=== PATIENT | male | born 1955 | race Caucasian/White ===

== ENCOUNTER 2019-03-16 16:53 | Inpatient (IN) | payer MEDICARE, BC ==
[~2019-03-16] VITALS: Ht 170.2 cm; Wt 66.7 kg
--- NOTE | 2019-03-16 17:05 | NUR ---
UZMA ENRIQUEZ AT BEDSIDE FOR MSE.
--- NOTE | 2019-03-16 17:13 | NUR ---
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 NO DETAILS OF THE PICK-UP LOCATION, PT'S MEDICAL HISTORY, PT'S MEDICAL STATUS, REPORT WERE RECEIVED FROM THE FACILITY NOR THE TRANSPORTATION COMPANY. VSS. PT PRESENTS W/ GENERALIZED WEAKNESS, WARM TO THE TOUCH, LOW-GRADE FEVER OF 99.5 DEGREES F. UNKNOWN MEDICATION ALLERGIES. CALL TO THE PT'S ORIGINATING FACILITY WAS PLACED, FACILITY REP UNABLE TO PROVIDE PT'S ALLERGIES.
[2019-03-16] MEDS ORDERED: PIPERACILLIN SODIUM/TAZOBACTAM 3.375 G in IV DEXTROSE 5% 50 ML IV ONE (17:15)
[2019-03-16] MEDS ORDERED: VANCOMYCIN IV 1,000 MG in IV DEXTROSE 5% 250 ML IV ONE (17:15)
[2019-03-16] MEDS ORDERED: IV NORMAL SALINE 1000 ML BAG IV ONE ×2 (17:15→18:30)
[2019-03-16] MEDS ORDERED: TAMS-3 PO (17:29)
[2019-03-16] MEDS ORDERED: SERT50TA PO (17:29)
[2019-03-16] MEDS ORDERED: RISP1TAB27 PO (17:29)
[2019-03-16] MEDS ORDERED: POTA10TA15 PO (17:29)
[2019-03-16] MEDS ORDERED: LOPE2CAP PO (17:29)
[2019-03-16] MEDS ORDERED: QUET50TA PO (17:29)
[2019-03-16] MEDS ORDERED: FURO20TA4 PO (17:29)
[2019-03-16] MEDS ORDERED: DONE10TA44 PO (17:29)
[2019-03-16] MEDS ORDERED: ONDA4TAB11 PO (17:29)
[2019-03-16] MEDS ORDERED: DOCU100C36 PO (17:29)
[2019-03-16] MEDS ORDERED: METO25TA6 PO (17:29)
[2019-03-16] MEDS ORDERED: TEMA30CA PO (17:29)
[2019-03-16] MEDS ORDERED: LORA1TAB PO (17:29)
[2019-03-16] MEDS ORDERED: TOBR5DRO46 EACHEYE (17:29)
[2019-03-16] MEDS ORDERED: SIME125T62 PO (17:29)
[2019-03-16] MEDS ORDERED: PIPERACILLIN/TAZOBACTAM/D5W 50 ML IV ONE (17:48)
[2019-03-16 17:52] LABS: *BILIRUBIN,URIN NEGATIVE (NEGATIVE); *CLARITY,URINE CLEAR (CLEAR); *COLOR,URINE YELLOW (YELLOW); *KETONES,URINE NEGATIVE (NEGATIVE); *UROBILINOGEN,URINE 0.2 E.U./dl (NORMAL); LEUKOCYTE ESTERASE ,URINE NEGATIVE (NEGATIVE); NITRITE, URINE NEGATIVE (NEGATIVE); UGLUCOSE NEGATIVE (NEGATIVE)
[2019-03-16 17:56] LABS: *BLOOD, URINE TRACE (NEGATIVE)
[2019-03-16 17:57] LABS: MUCUS,URINE FEW /LPF (0-FEW); SQUAMOUS EPITHELIAL CELL,UR FEW /HPF (NONE SEEN); WBC,URINE 0-3 /HPF (0-3)
[2019-03-16 18:04] LABS: BASOPHILS # (AUTO) 0.1 K/uL (0.0-8.0); BASOPHILS % (AUTO) 0.8 % (0.0-2.0); EOSINOPHILS # (AUTO) 0.2 K/uL (0.0-0.7); EOSINOPHILS % (AUTO) 1.9 % (0.0-7.0); HEMOGLOBIN 10.9 g/dL (12.5-16.3); LYMPHOCYTES # (AUTO) 1.2 K/uL (20.0-40.0); LYMPHOCYTES % (AUTO) 13.8 % (20.5-51.5); MEAN CORPUSCULAR HEMOGLOBIN 33.7 uug (23.8-33.4); MEAN CORPUSCULAR HGB CONC 32 g/dL (32.5-36.3); MEAN CORPUSCULAR VOLUME 105.6 fL (73.0-96.2); MONOCYTES # (AUTO) 0.9 K/uL (2.0-10.0); MONOCYTES % (AUTO) 10.1 % (0.0-11.0); NEUTROPHILS # (AUTO) 6.6 K/uL (1.8-8.9); NEUTROPHILS % (AUTO) 73.4 % (38.5-71.5); PLATELET COUNT (AUTO) 87 K/uL (152-348); RED BLOOD CELL COUNT(AUTO) 3.22 MIL/uL (4.06-5.63)
[2019-03-16 18:08] LABS: CREATININE 1.1 mg/dL (0.6-1.3); POTASSIUM 4.1 mmol/L (3.5-5.1)
[2019-03-16] MEDS ORDERED: VANCOMYCIN IV 200 ML ONE (18:19)
[2019-03-16 18:21] LABS: BILIRUBIN,DIRECT 0.1 mg/dL (0.0-0.2); BILIRUBIN,TOTAL 0.3 mg/dL (0.2-1.0); TOTAL PROTEIN, SERUM 6.7 g/dL (6.4-8.2)
[2019-03-16 18:26] LABS: BAND % (MANUAL) 14 % (0-10); EOSINOPHILS % (MANUAL) 1 % (0-8); LYMPHOCYTES % (MANUAL) 15 % (20-40); MONOCYTES % (MANUAL) 12 % (2-10); NEUTROPHILS % (MANUAL) 58 % (42-75)
--- NOTE | 2019-03-16 18:42 | NUR ---
ADMITTING REPORT GIVEN TO JCAQUELINE LITTLE.
--- NOTE | 2019-03-16 18:55 | NUR ---
Pt. admitted to TELE 307, under care of ANDRE ROCHE. Belongs List completed
--- NOTE | 2019-03-16 19:19 | NUR ---
Received call from Patient's nephew Jhonny, states patient just finished taking last dose of bactrim, and that patient had an eye infection from touching his eyes after touching his feces.
[2019-03-16] MEDS ORDERED: IV NS 1000 ML 1,000 ML IV ONE (19:45)
[2019-03-16] MEDS ORDERED: ONDANSETRON 4 MG/2 ML VIAL IV PRN (19:45)
[2019-03-16] MEDS ORDERED: PIPERACILLIN SODIUM/TAZOBACTAM 3.375 G in IV DEXTROSE 5% 50 ML IV SCH (19:45)
[2019-03-16] MEDS ORDERED: SIMETHICONE 125 MG PO SCH (20:00)
--- NOTE | 2019-03-16 20:30 | NUR ---
RECEIVED PATIENT VIA GURNEY FROM ER. IT WAS REPORTED THAT PATIENT IS ALERT TO SELF ONLY. UPON ADMISSION TO FLOOR, PATIENT IS A/O X 2-3. PATIENT IS ABLE TO ANSWER QUESTIONS AND VERBALIZES UNDERSTANDING. C/O MILD PAIN IN BACK. VSS UPON ADMISSION. ON O2 2L NC. FLUID CHALLENGE FROM ER COMPLETE. H/L INTACT AND PATENT, NOTED TO RIGHT UPPER ARM. ORIENTED PATIENT TO ROOM AND CALL LIGHT. BED ALARM ON. ALL NEEDS ATTENDED. WILL CONTINUE TO MONITOR AND ASSESS.
[2019-03-16 20:56] VITALS: BP 98/54
[2019-03-16] MEDS ORDERED: TEMAZEPAM 30 MG CAPSULE PO SCH (21:00)
--- NOTE | 2019-03-16 21:00 | NUR ---
PATIENT ON TELE AV PACING.
[2019-03-16] MEDS: ACETAMINOPHEN 325 MG TABLET PO PRN (21:13)
[2019-03-16] MEDS: FAMOTIDINE. 20 MG/2 ML VIAL IV SCH (21:18)
--- NOTE | 2019-03-16 21:21 | NUR ---
PHARMACY CLINICAL NOTES : VANCOMYCIN DOSING S: 63 YO male with DX of sepsis of unknown source also on Zosyn O: BUN/SCR 23/1.1, WBC 9.0, TEMP 99.5, DOSING WT 170 LBS A/P: PT received Vancomycin 1 gm in ER @ 18:18, will Continue with Vancomycin 1250 MG IVPB q15H starting 08/ @ 0900 This regimen would yield and approximate peak of 38 and trough of 17. Plan to order trough prior to 4th dose and will adjust the dose if necessary. Will continue monitor renal fxn.
[2019-03-16] MEDS ORDERED: TEMAZEPAM 15 MG CAPSULE PO SCH (21:47)
[2019-03-16] MEDS: IV NS 1000 ML 1,000 ML IV PRN (21:54)
[2019-03-16] MEDS: PIPERACILLIN/TAZOBACTAM/D5W 50 ML IV SCH (23:56)
[2019-03-17] VITALS (86 sets, daily range): BP systolic 68–126; BP diastolic 39–85
--- NOTE | 2019-03-17 00:45 | NUR ---
PATIENT ASLEEP IN BED. BLOOD PRESSURE DROPPED TO THE 70'S. PATIENT EASILY AROUSABLE. ON TELE AV PACING 80'S. WILL CONTINUE TO MONITOR AND ASSESS.
--- NOTE | 2019-03-17 01:00 | NUR ---
CALLED OUT TO LYLE CLOTHING SUPERVISOR MANAGER DRIVE TO INFORM HIM OF LOW BP 74/47. RECEIVED NEW ORDERS.
[2019-03-17] MEDS ORDERED: IV NORMAL SALINE 500 ML BAG IV ONE (01:30)
--- NOTE | 2019-03-17 02:15 | NUR ---
RECHECKED PATIENTS BLOOD PRESSURE AFTER NS 500 BOLUS GIVEN. BP NOW 70/46. RECEIVED ORDER TO TRANSFER PATIENT TO ICU. RN MOLD DESIGN ENGINEER NOTIFIED.
--- NOTE | 2019-03-17 02:25 | NUR ---
PATIENT TX TO ICU.
--- NOTE | 2019-03-17 02:40 | NUR ---
received patient from telemetry transfer for low bp .to start lavished drip as per ANDRE calle.patient came via bed . alert to name follow simple commands . slow and weak . bp 80/57 hr 80 a-v paced . denies pain when asked . tolerating 02 via nasal cannula at 2L /min rr 16 saturation 100% no respiratory distress noted .connected to ccu monitor and oriented with ccu equipment .call light placed with in reach ,continue to monitor v/s and levels of comfort .
[2019-03-17] MEDS ORDERED: NOREPINEPHRINE BITARTRATE 4 MG/4 ML VIAL IV ONE (02:57)
[2019-03-17] MEDS: NOREPINEPHRINE BITARTRATE 8 MG in IV DEXTROSE 5% 500 ML IV PRN ×2 (03:00→15:27)
--- NOTE | 2019-03-17 03:15 | NUR ---
Jhonny Carty called patient POA , updated with patient status and condition . obtained telephone consent for PICC LINE placement patient very hard stick and on bp ivf medication . nursing coke handling supervisor aware about the picc line .
--- NOTE | 2019-03-17 04:35 | NUR ---
on Levophed drip to keep sbp >90 mm/hg . 99/67. hr 80 AV PACED.
--- NOTE | 2019-03-17 05:00 | NUR ---
incontinent of urine and patient lethargic unable to use the urinal placed f/c and follow protocol .
[2019-03-17] MEDS: PIPERACILLIN/TAZOBACTAM/D5W 50 ML IV SCH ×3 (05:25→17:39)
--- NOTE | 2019-03-17 07:15 | NUR ---
Received pt. AAOx1 on levophed drip for hemodynamic support to titrate per protocol. On NC2L, with saturation within desired limits. IV patent to RH. NS set-up to run at 50cc/hr see orders. No skin breakdown noted. Will continue with care plan.
[2019-03-17 08:48] LABS: BASOPHILS % (AUTO) 0.5 % (0.0-2.0); EOSINOPHILS # (AUTO) 0.2 K/uL (0.0-0.7); HEMOGLOBIN 10.3 g/dL (12.5-16.3); LYMPHOCYTES # (AUTO) 0.9 K/uL (20.0-40.0); LYMPHOCYTES % (AUTO) 11.6 % (20.5-51.5); MEAN CORPUSCULAR HEMOGLOBIN 34.2 uug (23.8-33.4); MEAN CORPUSCULAR HGB CONC 32 g/dL (32.5-36.3); MEAN CORPUSCULAR VOLUME 105.8 fL (73.0-96.2); MONOCYTES # (AUTO) 0.6 K/uL (2.0-10.0); MONOCYTES % (AUTO) 8.4 % (0.0-11.0); NEUTROPHILS # (AUTO) 5.7 K/uL (1.8-8.9); NEUTROPHILS % (AUTO) 76.5 % (38.5-71.5); PLATELET COUNT (AUTO) 77 K/uL (152-348); RED BLOOD CELL COUNT(AUTO) 3.02 MIL/uL (4.06-5.63); WHITE BLOOD COUNT (AUTO) 7.5 K/uL (3.6-10.2)
[2019-03-17] MEDS: TOBRAMYCIN/DEXAMETH OPHT DROP 2.5 ML BOTTLE EACHEYE SCH ×2 (08:59→17:37)
[2019-03-17] MEDS ORDERED: PANTOPRAZOLE SODIUM 40 MG VIAL IV SCH (09:00)
[2019-03-17] MEDS ORDERED: LORAZEPAM 1 MG TABLET PO SCH (09:00)
[2019-03-17] MEDS ORDERED: TAMSULOSIN HCL 0.4 MG CAP.SR.24H PO SCH (09:00)
--- NOTE | 2019-03-17 09:00 | NUR ---
Patient was seen by Dr. Pope.
[2019-03-17] MEDS: FAMOTIDINE. 20 MG/2 ML VIAL IV SCH ×2 (09:01→20:47)
[2019-03-17] MEDS: DOCUSATE SODIUM 100 MG CAPSULE PO SCH (09:01)
[2019-03-17] MEDS: SERTRALINE HCL 50 MG TABLET PO SCH (09:01)
[2019-03-17] MEDS: VANCOMYCIN IV 1,250 MG in IV DEXTROSE 5% 500 ML IV SCH (09:02)
[2019-03-17 09:08] LABS: THYROID STIMULATING HORMONE 3.337 mIU/mL (0.358-3.740)
[2019-03-17 09:09] LABS: CREATININE 0.9 mg/dL (0.6-1.3); POTASSIUM 4.1 mmol/L (3.5-5.1)
[2019-03-17 09:15] LABS: BILIRUBIN,TOTAL 0.5 mg/dL (0.2-1.0); MAGNESIUM 1.7 mg/dL (1.8-2.4); PHOSPHOROUS 2.9 mg/dL (2.5-4.9)
[2019-03-17] MEDS ORDERED: VANCOMYCIN IV 1 G in PREMIXED 0 EACH IV SCH (10:00)
[2019-03-17] MEDS ORDERED: PHYTONADIONE 10 MG/1 ML AMPUL ONE (10:21)
[2019-03-17] MEDS ORDERED: PHYTONADIONE 5 MG TABLET PO ONE (11:00)
--- NOTE | 2019-03-17 13:03 | NUR ---
PHARMACY CLINICAL NOTES : VANCOMYCIN DOSING S: T continue vanco dosing for this 63 YO male patient with DX of sepsis of unknown source O: BUN/SCR 13/0.9, WBC 7.5, TEMP 97.5 wt 77 kg ht 170 cm A/P: Will Continue same dose of Vancomycin 1250 MG IVPB q15H for today. 2nd dose on 8 at midnight. Plan to order trough prior to 4th dose (not yet ordered). Will monitor renal function & adjust the dose if necessary. Will continue to follow
--- NOTE | 2019-03-17 13:15 | NUR ---
Patient was seen by Dr. Son.
[2019-03-17] MEDS: IV NS 1000 ML 1,000 ML IV PRN (13:21)
[2019-03-17] MEDS ORDERED: TEMAZEPAM 30 MG CAPSULE PO SCH (18:00)
--- NOTE | 2019-03-17 18:52 | NUR ---
Patient has been cooperative with care, all needs met. Araujo replaced today due to leak, draining clear yellow urine at this time. Patient was removed from oxygen as saturations sustained above 95%. Vitals 111/67 p80. Levophed 4mcg/min, and IVF NS @50cc/hr. Patient sitting up in bed, no distress noted, side rails up x2. Air mattress inflated and DVT pumps on.
--- NOTE | 2019-03-17 19:30 | NUR ---
rounds made patient in alert to name and on and verbal verbal ,maex4,slow and weak . denies pain when asked . a-v paced .
--- NOTE | 2019-03-17 20:20 | NUR ---
went for cat scan of the head with out contrast tolerated via gurney .
--- NOTE | 2019-03-17 20:40 | NUR ---
back from cat scan pts tolerated test.
[2019-03-17] MEDS: risperiDONE 1 MG TABLET PO SCH (20:47)
--- NOTE | 2019-03-17 21:00 | NUR ---
due medication given crushed pill and given with vanilla pudding .hob up aspiration .
[2019-03-17] MEDS: LORAZEPAM 1 MG TABLET PO PRN (21:51)
--- NOTE | 2019-03-17 21:51 | NUR ---
Ativan1 mg po given ,patient keeps getting oob ,unable to educate ,anxious . advised to stay in bed and to ask for help . call light placed with in reach .
--- NOTE | 2019-03-17 22:34 | NUR ---
restraints protocol implemented patient keeps getting oob , removing equipment ,alert only to name and confused .
[2019-03-18] VITALS (94 sets, daily range): BP systolic 85–133; BP diastolic 53–90
[2019-03-18] MEDS: PIPERACILLIN/TAZOBACTAM/D5W 50 ML IV SCH ×2 (00:15→05:22)
[2019-03-18] MEDS: VANCOMYCIN IV 1,250 MG in IV DEXTROSE 5% 500 ML IV SCH (00:15)
--- NOTE | 2019-03-18 04:10 | NUR ---
am care done .bath patient .changed soiled ,linens and gown .f/c and oral care done ,shave patient . turned and reposition . mepiles applied to sacral area .
[2019-03-18 04:47] LABS: BASOPHILS % (AUTO) 0.7 % (0.0-2.0); EOSINOPHILS # (AUTO) 0.3 K/uL (0.0-0.7); EOSINOPHILS % (AUTO) 4.2 % (0.0-7.0); HEMATOCRIT 30.1 % (36.7-47.1); HEMOGLOBIN 9.9 g/dL (12.5-16.3); LYMPHOCYTES # (AUTO) 0.9 K/uL (20.0-40.0); LYMPHOCYTES % (AUTO) 14.6 % (20.5-51.5); MEAN CORPUSCULAR HEMOGLOBIN 34.3 uug (23.8-33.4); MEAN CORPUSCULAR HGB CONC 33 g/dL (32.5-36.3); MEAN CORPUSCULAR VOLUME 104.8 fL (73.0-96.2); MONOCYTES # (AUTO) 0.7 K/uL (2.0-10.0); MONOCYTES % (AUTO) 10.9 % (0.0-11.0); NEUTROPHILS # (AUTO) 4.4 K/uL (1.8-8.9); NEUTROPHILS % (AUTO) 69.6 % (38.5-71.5); PLATELET COUNT (AUTO) 88 K/uL (152-348); RED BLOOD CELL COUNT(AUTO) 2.87 MIL/uL (4.06-5.63); WHITE BLOOD COUNT (AUTO) 6.3 K/uL (3.6-10.2)
[2019-03-18 05:23] LABS: BILIRUBIN,TOTAL 0.5 mg/dL (0.2-1.0); CREATININE 0.8 mg/dL (0.6-1.3); MAGNESIUM 1.6 mg/dL (1.8-2.4); PHOSPHOROUS 2.5 mg/dL (2.5-4.9); TOTAL PROTEIN, SERUM 5.9 g/dL (6.4-8.2)
--- NOTE | 2019-03-18 05:35 | NUR ---
had PXCR at bedside .
[2019-03-18] MEDS ORDERED: Z GUARD REMEDY PASTE 57 GM TUBE TOP PRN (07:00)
--- NOTE | 2019-03-18 07:10 | NUR ---
Received report from shift supervisor film processing nurse, patient in bed resting, no distress noted at this time, levophed running at 4mcg/min, IVF NS 50cc/hr, Room air saturating 100%, air mattress inflated and patient positioned with heels floated and resting comfortably.
[2019-03-18] MEDS: SERTRALINE HCL 50 MG TABLET PO SCH (08:07)
[2019-03-18] MEDS: DOCUSATE SODIUM 100 MG CAPSULE PO SCH (08:07)
[2019-03-18] MEDS: TOBRAMYCIN/DEXAMETH OPHT DROP 2.5 ML BOTTLE EACHEYE SCH ×2 (08:10→17:22)
[2019-03-18] MEDS: FAMOTIDINE. 20 MG/2 ML VIAL IV SCH (08:19)
--- NOTE | 2019-03-18 08:45 | NUR ---
Patient was seen by Dr. Pope.
[2019-03-18 09:13] LABS: BAND % (MANUAL) 5 % (0-10); BASOPHILS % (MANUAL) 0 % (0-2); EOSINOPHILS % (MANUAL) 3 % (0-8); LYMPHOCYTES % (MANUAL) 12 % (20-40); MONOCYTES % (MANUAL) 7 % (2-10); NEUTROPHILS % (MANUAL) 73 % (42-75)
[2019-03-18] MEDS: Z GUARD REMEDY PASTE 57 GM TUBE TOP SCH ×2 (11:13→21:04)
[2019-03-18] MEDS: MAGNESIUM SULFATE/D5W 100 ML IV SCH ×2 (11:44→12:36)
[2019-03-18] MEDS: POTASSIUM CHLORIDE 50 ML IV SCH ×4 (11:44→14:33)
[2019-03-18] MEDS: MEROPENEM 1 G in IV NORMAL SALINE 100 ML IV SCH ×2 (14:05→21:25)
[2019-03-18] MEDS: IV NS 1000 ML 1,000 ML IV PRN (14:55)
[2019-03-18] MEDS: NOREPINEPHRINE BITARTRATE 8 MG in IV DEXTROSE 5% 500 ML IV PRN (14:58)
--- NOTE | 2019-03-18 16:45 | NUR ---
Patient had a mild temperature of 99.2, removed patient's socks and sheet. Will continue to monitor.
[2019-03-18] MEDS: ACETAMINOPHEN 325 MG TABLET PO PRN (17:21)
--- NOTE | 2019-03-18 19:14 | NUR ---
Report given to truck driver helper nurse, patient in bed awake, no distress noted at this time, bed in low position, side rails up x2. Patient is on room air, georges draining clear yellow urine, levophed running at 1mcg/min.
[2019-03-18] MEDS: CULTURELLE CAPSULE PO SCH (21:03)
[2019-03-18] MEDS: FAMOTIDINE 20 MG TABLET PO SCH (21:04)
[2019-03-18] MEDS: TAMSULOSIN HCL 0.4 MG CAP.SR.24H PO SCH (21:04)
[2019-03-18] MEDS: risperiDONE 1 MG TABLET PO SCH (21:05)
[2019-03-19] VITALS (54 sets, daily range): BP systolic 86–142; BP diastolic 44–83
[2019-03-19 04:47] LABS: BASOPHILS # (AUTO) 0.1 K/uL (0.0-8.0); BASOPHILS % (AUTO) 0.9 % (0.0-2.0); EOSINOPHILS # (AUTO) 0.4 K/uL (0.0-0.7); EOSINOPHILS % (AUTO) 5.8 % (0.0-7.0); HEMOGLOBIN 10.6 g/dL (12.5-16.3); LYMPHOCYTES # (AUTO) 1.1 K/uL (20.0-40.0); LYMPHOCYTES % (AUTO) 16.6 % (20.5-51.5); MEAN CORPUSCULAR HEMOGLOBIN 33.6 uug (23.8-33.4); MEAN CORPUSCULAR HGB CONC 32 g/dL (32.5-36.3); MEAN CORPUSCULAR VOLUME 104.5 fL (73.0-96.2); MONOCYTES # (AUTO) 0.9 K/uL (2.0-10.0); MONOCYTES % (AUTO) 13.2 % (0.0-11.0); NEUTROPHILS # (AUTO) 4.2 K/uL (1.8-8.9); NEUTROPHILS % (AUTO) 63.5 % (38.5-71.5); PLATELET COUNT (AUTO) 105 K/uL (152-348); RED BLOOD CELL COUNT(AUTO) 3.16 MIL/uL (4.06-5.63); WHITE BLOOD COUNT (AUTO) 6.6 K/uL (3.6-10.2)
[2019-03-19 04:57] LABS: CREATININE 0.9 mg/dL (0.6-1.3); MAGNESIUM 1.8 mg/dL (1.8-2.4); POTASSIUM 3.3 mmol/L (3.5-5.1)
[2019-03-19] MEDS: MEROPENEM 1 G in IV NORMAL SALINE 100 ML IV SCH ×3 (05:24→21:07)
--- NOTE | 2019-03-19 07:37 | NUR ---
Received patient in bed resting: On room air with saturation within desired limits. hemodynamically unstable with sbp maintained above 90 with levophed running at 1mcg/min will continue titration as pt's toleration. ML to RUE patent.
[2019-03-19] MEDS: DOCUSATE SODIUM 100 MG CAPSULE PO SCH (08:09)
[2019-03-19] MEDS: SERTRALINE HCL 50 MG TABLET PO SCH (08:09)
[2019-03-19] MEDS: CULTURELLE CAPSULE PO SCH ×2 (08:09→20:21)
[2019-03-19] MEDS: FAMOTIDINE 20 MG TABLET PO SCH ×2 (08:09→20:21)
[2019-03-19] MEDS: Z GUARD REMEDY PASTE 57 GM TUBE TOP SCH ×2 (08:09→20:19)
[2019-03-19] MEDS: TOBRAMYCIN/DEXAMETH OPHT DROP 2.5 ML BOTTLE EACHEYE SCH ×2 (08:10→17:05)
--- NOTE | 2019-03-19 09:21 | NUR ---
Cardiology services, Dr. Boyer in the unit to examine patient, report given. Orders to continue with care plan received.
--- NOTE | 2019-03-19 09:49 | NUR ---
pulmonary services, Dr. Stewart in the unit to examine pt. report given orders to sent specimen post thoracenthesis, and continue with care plan. Addendum: 03/19/19 at 1909 by EMILIANO HEART RN At this time Dr. Stewart spoke with Jhonny Kaplan Pt's DPOA and discussed plan for left lung thoracentesis, and consent obtained by me and Mercedes Escoto.
[2019-03-19] MEDS: POTASSIUM CHLORIDE 50 ML IV SCH ×2 (09:55→11:16)
[2019-03-19] MEDS: POTASSIUM PHOSPHATE MM 7.5 MMOL in IV DEXTROSE 5% 100 ML IV SCH ×2 (11:19→14:24)
--- NOTE | 2019-03-19 11:40 | NUR ---
US-guided thoracenthesis of left lung started at this time. Consent verify by Dr. Wade, and R.N., time out performed and procedure started. Pt's vital within normal see VS sheet. saturation within normal and pt. remains in RA. procedure end time 1450, with a total of 930cc tea color fluid obtained. insertion site left cover with bad-aid no bleeding or leaking noted. Syringe with 60cc fluid and a bottle with 875cc drained fluid delivered to Lab with requisition form. Orders for Stat chest-Xray post procedure. Will continue with care plan.
--- NOTE | 2019-03-19 14:00 | NUR ---
Around this time patient observed to be forcefully attempting to remove georges catheter, and painting his face with stool. Patient reoriented and educated on the need to keep georges in place. Patient pleasantly confused, attending informed see order hx.
--- NOTE | 2019-03-19 14:30 | NUR ---
ID services, Dr. Stevens in the unit to examine patient, report given; see order history.
[2019-03-19] MEDS: IV NS 1000 ML 1,000 ML IV PRN (16:04)
[2019-03-19] MEDS ORDERED: QUET25TA PO (17:12)
--- NOTE | 2019-03-19 18:44 | NUR ---
Left patient in bed AAOx1-2; on /off periods of confusion remains on mittens BUE due several attempts to forcefully removed georges catheter. Patient remains hemodynamically stable off levophed since 829. no Sob remains in room air with saturation within desire limits. No signs of bleeding or distress post left thoracentesis ML RUE intact and patent dressing change pp. Tolerating diet well with no n/v, or diarrhea pt. able to pass his bowel x1 during shift. Georges catheter patent with adequate output. Remains free from any injury, skin remains c.d.i. Will continue with care plan.
--- NOTE | 2019-03-19 19:30 | NUR ---
rounds made patient in bed aaox1, maex4,BUE strong anD BLE weak . pts incontinent of stool ,large amt of stool brownish in color .changed soiled linens and gown .applied Mediflex sacral area . turned and reposition .on room air no respiratory distress noted breathing even and unlabored . continue to monitor v/s and levels of comfort .
--- NOTE | 2019-03-19 20:15 | NUR ---
seen and examined by WIRE WRAPPING MACHINE OPERATOR : DELISA .
[2019-03-19] MEDS: TAMSULOSIN HCL 0.4 MG CAP.SR.24H PO SCH (20:21)
[2019-03-19] MEDS: LORAZEPAM 1 MG TABLET PO PRN (20:21)
[2019-03-19] MEDS: risperiDONE 1 MG TABLET PO SCH (20:22)
--- NOTE | 2019-03-19 20:50 | NUR ---
seen and examined by elicia basilio . see labs orders .
[2019-03-20] VITALS (23 sets, daily range): BP systolic 88–129; BP diastolic 56–82
[2019-03-20 05:05] LABS: BASOPHILS % (AUTO) 0.6 % (0.0-2.0); EOSINOPHILS # (AUTO) 0.2 K/uL (0.0-0.7); HEMATOCRIT 29.7 % (36.7-47.1); HEMOGLOBIN 9.7 g/dL (12.5-16.3); LYMPHOCYTES # (AUTO) 0.8 K/uL (20.0-40.0); LYMPHOCYTES % (AUTO) 14.4 % (20.5-51.5); MEAN CORPUSCULAR HEMOGLOBIN 34.2 uug (23.8-33.4); MEAN CORPUSCULAR HGB CONC 33 g/dL (32.5-36.3); MONOCYTES # (AUTO) 0.8 K/uL (2.0-10.0); MONOCYTES % (AUTO) 13.7 % (0.0-11.0); NEUTROPHILS # (AUTO) 3.7 K/uL (1.8-8.9); NEUTROPHILS % (AUTO) 68.3 % (38.5-71.5); PLATELET COUNT (AUTO) 88 K/uL (152-348); RED BLOOD CELL COUNT(AUTO) 2.83 MIL/uL (4.06-5.63); WHITE BLOOD COUNT (AUTO) 5.5 K/uL (3.6-10.2)
[2019-03-20 05:12] LABS: IRON, SERUM 45 ug/dL (50-175)
[2019-03-20 05:14] LABS: CARBON DIOXIDE 27 mmol/L (21-32); CHLORIDE 108 mmol/L (98-107); CREATININE 0.6 mg/dL (0.6-1.3); GLUCOSE 96 mg/dL (74-106); LACTATE DEHYDROGENASE 169 U/L (85-227); MAGNESIUM 1.7 mg/dL (1.8-2.4); POTASSIUM 3.2 mmol/L (3.5-5.1); TOTAL PROTEIN, SERUM 5.6 g/dL (6.4-8.2); UREA NITROGEN, BLOOD 3 mg/dL (7-18)
[2019-03-20] MEDS: MEROPENEM 1 G in IV NORMAL SALINE 100 ML IV SCH ×3 (05:26→21:34)
[2019-03-20 05:50] LABS: FERRITIN 1623 ng/mL (26-388)
[2019-03-20 05:51] LABS: BAND % (MANUAL) 10 % (0-10); EOSINOPHILS % (MANUAL) 1 % (0-8); LYMPHOCYTES % (MANUAL) 5 % (20-40); MONOCYTES % (MANUAL) 4 % (2-10); NEUTROPHILS % (MANUAL) 80 % (42-75)
[2019-03-20] MEDS: DOCUSATE SODIUM 100 MG CAPSULE PO SCH (08:10)
[2019-03-20] MEDS: FAMOTIDINE 20 MG TABLET PO SCH ×2 (08:10→20:25)
[2019-03-20] MEDS: QUETIAPINE FUMARATE 25 MG TABLET PO SCH ×2 (08:10→16:06)
[2019-03-20] MEDS: CULTURELLE CAPSULE PO SCH ×2 (08:10→20:25)
[2019-03-20] MEDS: SERTRALINE HCL 50 MG TABLET PO SCH (08:10)
[2019-03-20] MEDS: TOBRAMYCIN/DEXAMETH OPHT DROP 2.5 ML BOTTLE EACHEYE SCH ×2 (08:11→16:06)
[2019-03-20] MEDS: Z GUARD REMEDY PASTE 57 GM TUBE TOP SCH ×2 (08:11→20:25)
--- NOTE | 2019-03-20 08:56 | NUR ---
Dr. Stewart here to see pt. Full report given. New orders received.
[2019-03-20] MEDS: MAGNESIUM SULFATE/D5W 100 ML IV SCH ×2 (09:35→10:39)
--- NOTE | 2019-03-20 09:35 | NUR ---
OT here to see pt.
--- NOTE | 2019-03-20 10:25 | NUR ---
PT here to see pt.
--- NOTE | 2019-03-20 11:42 | NUR ---
Spoke with Dr. Marshall on the telephone. Full report given. stated that he will come later today to consult and see the pt.
[2019-03-20] MEDS: POTASSIUM PHOSPHATE MM 7.5 MMOL in IV DEXTROSE 5% 100 ML IV SCH ×2 (11:44→12:50)
--- NOTE | 2019-03-20 18:34 | NUR ---
Dr. Marshall here to see pt. Full report given. New orders received.
--- NOTE | 2019-03-20 19:30 | NUR ---
Report received. Patient awake, oriented to name only. Follows commands fairly well. NAD noted. Assessment done. Fall and safety precautions enforced. Addendum: 03/20/19 at 2241 by LATHA MORRIS RN Amended: Links added. Addendum: 03/20/19 at 2244 by LATHA MORRIS RN Amended: Links added.
[2019-03-20] MEDS: IV NS 1000 ML 1,000 ML IV PRN (19:57)
[2019-03-20] MEDS: TAMSULOSIN HCL 0.4 MG CAP.SR.24H PO SCH (20:25)
--- NOTE | 2019-03-20 20:25 | NUR ---
PM care done. Patient cooperative. PO meds crushed and given with vanmercedes pushivaing. No swallowing difficulty. With occasional Parkinsons tremors of arms. Bilateral mittens for safety. Addendum: 03/20/19 at 2244 by LATHA MORRIS RN Amended: Links added.
[2019-03-20] MEDS: risperiDONE 1 MG TABLET PO SCH (20:26)
[2019-03-21] VITALS (24 sets, daily range): BP systolic 80–116; BP diastolic 35–79
[2019-03-21 04:55] LABS: BASOPHILS # (AUTO) 0.1 K/uL (0.0-8.0); BASOPHILS % (AUTO) 1.2 % (0.0-2.0); EOSINOPHILS # (AUTO) 0.4 K/uL (0.0-0.7); EOSINOPHILS % (AUTO) 8.7 % (0.0-7.0); HEMATOCRIT 29.4 % (36.7-47.1); HEMOGLOBIN 9.7 g/dL (12.5-16.3); LYMPHOCYTES # (AUTO) 1.1 K/uL (20.0-40.0); LYMPHOCYTES % (AUTO) 22.6 % (20.5-51.5); MEAN CORPUSCULAR HEMOGLOBIN 34.1 uug (23.8-33.4); MEAN CORPUSCULAR HGB CONC 33 g/dL (32.5-36.3); MEAN CORPUSCULAR VOLUME 103.9 fL (73.0-96.2); MONOCYTES # (AUTO) 0.7 K/uL (2.0-10.0); MONOCYTES % (AUTO) 14.4 % (0.0-11.0); NEUTROPHILS # (AUTO) 2.5 K/uL (1.8-8.9); NEUTROPHILS % (AUTO) 53.1 % (38.5-71.5); PLATELET COUNT (AUTO) 98 K/uL (152-348); RED BLOOD CELL COUNT(AUTO) 2.83 MIL/uL (4.06-5.63); WHITE BLOOD COUNT (AUTO) 4.6 K/uL (3.6-10.2)
[2019-03-21 05:43] LABS: CARBON DIOXIDE 25 mmol/L (21-32); CHLORIDE 113 mmol/L (98-107); CREATININE 0.5 mg/dL (0.6-1.3); GLUCOSE 84 mg/dL (74-106); PHOSPHOROUS 2.6 mg/dL (2.5-4.9); POTASSIUM 3.4 mmol/L (3.5-5.1); UREA NITROGEN, BLOOD 4 mg/dL (7-18)
[2019-03-21] MEDS: MEROPENEM 1 G in IV NORMAL SALINE 100 ML IV SCH ×3 (06:01→21:35)
--- NOTE | 2019-03-21 06:14 | NUR ---
Had a moderate soft brown BM. Am care done. Patient tolerated care well. Appears withdrawn, with fixed gaze at times and answers questions with few words. Remains oriented to his name only but able follow commands well. Denies SOB. Sat above 96% on room air. Post Thoracentesis site with dressing intact, clean and dry. No crepitus noted.
--- NOTE | 2019-03-21 07:20 | NUR ---
Received report from night shift manager nurse, patient in bed awake and responsive. Pulses palpable bilateral both upper and lower extremities. Patient is on room air, and georges is draining clear yellow urine. IVF running at 50cc/hr NS. Dressing over left thoracic puncture site intact. Air mattress inflated and bilateral restraints released as trial. No distress noted at this time.
[2019-03-21 07:29] LABS: LYMPHOCYTES % (MANUAL) 22 % (20-40); MONOCYTES % (MANUAL) 10 % (2-10); NEUTROPHILS % (MANUAL) 54 % (42-75)
[2019-03-21 07:30] LABS: BAND % (MANUAL) 7 % (0-10); EOSINOPHILS % (MANUAL) 7 % (0-8)
--- NOTE | 2019-03-21 08:00 | NUR ---
PATIENT WAS SEEN BY DR REED.
[2019-03-21 08:06] LABS: *IMMUNOGLOBULIN G, SERUM 1265 mg/dL (700-1600); IMMUNOGLOBULIN A, SERUM 344 mg/dL (61-437); IMMUNOGLOBULIN M, SERUM 39 mg/dL (20-172)
[2019-03-21] MEDS: TOBRAMYCIN/DEXAMETH OPHT DROP 2.5 ML BOTTLE EACHEYE SCH ×2 (08:14→16:59)
[2019-03-21] MEDS: FAMOTIDINE 20 MG TABLET PO SCH ×2 (08:14→20:23)
[2019-03-21] MEDS: CULTURELLE CAPSULE PO SCH ×2 (08:14→20:23)
[2019-03-21] MEDS: DOCUSATE SODIUM 100 MG CAPSULE PO SCH (08:15)
[2019-03-21] MEDS: SERTRALINE HCL 50 MG TABLET PO SCH (08:15)
[2019-03-21] MEDS: QUETIAPINE FUMARATE 25 MG TABLET PO SCH ×2 (08:15→16:57)
[2019-03-21] MEDS: Z GUARD REMEDY PASTE 57 GM TUBE TOP SCH ×2 (08:19→20:23)
[2019-03-21] MEDS ORDERED: POTASSIUM CHLORIDE 20 MEQ POWDER PACKET PO ONE (09:30)
--- NOTE | 2019-03-21 10:00 | NUR ---
CHANGE IN CARDIAC RHYTHM NOTED. STAT EKG ORDERED. ELECTRONIC PACEMAKER NOTED ON EKG.
[2019-03-21 11:18] LABS: ALBUMIN 2.6 g/dL (2.9-4.4); ALPHA-1-GLOBULIN 0.2 g/dL (0.0-0.4); ALPHA-2-GLOBULIN 0.5 g/dL (0.4-1.0); BETA GLOBULIN 0.7 g/dL (0.7-1.3); GAMMA GLOBULIN 1.2 g/dL (0.4-1.8); GLOBULIN, TOTAL 2.7 g/dL (2.2-3.9); M-SPIKE Not Observed g/dL (Not Observed)
--- NOTE | 2019-03-21 12:15 | NUR ---
Attending physician Dr. Ryan Moss in the unit to examine patient, full report given, Orders received and implemented, at this time a call to Mr. Jhonny Kaplan pt's DPOA by Dr. Davis with call back number to informed him of care plan. Awaiting call back.
--- NOTE | 2019-03-21 13:41 | NUR ---
A 3rd call to Mr. Jhonny Kaplan and a message left with call back number. The call was to inquire if he has spoken to Dr. Davis for informed consent for CT guided pigtail insertion. Awaiting call back.
--- NOTE | 2019-03-21 14:58 | NUR ---
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 Mr. Barry was provided with Dr. Ryan Moss's number and advice to call him for informed consent for procedure.
--- NOTE | 2019-03-21 16:00 | NUR ---
Patient was seen by Infectious Disease Dr. Stevens.
[2019-03-21] MEDS: IV NS 1000 ML 1,000 ML IV PRN (16:58)
--- NOTE | 2019-03-21 17:17 | NUR ---
A call from attending physician Dr. Ryan Moss to informed that he hasn't been able to talk to pt's nephew Mr. Barry Rosaura.
--- NOTE | 2019-03-21 18:50 | NUR ---
Patient has been cooperative with care. Alert and responsive. Patients oxygen saturation is 100% on 6L nasal canula. Patient is hemodynamically stable and pacing at 80bmp. Patient had two bowel movements today, and is tolerating meals. Patient had an episode of coughing during his evening meal and appears to be trying to cough something up. Patient reports that he already coughed it up. IVF running at 50cc/hr, georges draining clear yellow urine. Patient has been frequently repositioned and offloading of heels.
--- NOTE | 2019-03-21 19:30 | NUR ---
Report received. Patient awake, answers questions, oriented to his name only. Follows commands appropriately. Speech clear but with flat affect. Assessment done; see flow sheet for complete data. O2 6 L NC; sat 100%. Denies SOB. Addendum: 03/21/19 at 2124 by LATHA MORRIS RN Amended: Links added. Addendum: 03/21/19 at 2127 by LATHA MORRIS RN Amended: Links added.
--- NOTE | 2019-03-21 20:00 | NUR ---
PM care rendered. Patient stated he has pain in his lungs. "I have fluids in my lungs." HOB elevated above 30 degrees at all times. PO meds given including Tylenol for pain. No swallowing difficulty. Addendum: 03/21/19 at 2127 by LATHA MORRIS RN Amended: Links added.
[2019-03-21] MEDS: risperiDONE 1 MG TABLET PO SCH (20:23)
[2019-03-21] MEDS: TAMSULOSIN HCL 0.4 MG CAP.SR.24H PO SCH (20:23)
[2019-03-21] MEDS: ACETAMINOPHEN 325 MG TABLET PO PRN (20:26)
--- NOTE | 2019-03-21 21:30 | NUR ---
Tylenol effective. Patient sleeping; monitored closely.
[2019-03-22] VITALS (25 sets, daily range): BP systolic 86–114; BP diastolic 49–77
--- NOTE | 2019-03-22 04:30 | NUR ---
Incontinent of soft brown BM; am care done. Abruptly curses and uses profanity during care. Patient shouts "Hurry up!" Patient reoriented and advised appropriately. [place] SOB. Addendum: 03/22/19 at 0706 by LATHA MORRIS RN Amended: Links added.
[2019-03-22 05:06] LABS: EOSINOPHILS # (AUTO) 0.3 K/uL (0.0-0.7); EOSINOPHILS % (AUTO) 6.9 % (0.0-7.0); HEMATOCRIT 27.3 % (36.7-47.1); LYMPHOCYTES # (AUTO) 1.1 K/uL (20.0-40.0); LYMPHOCYTES % (AUTO) 21.1 % (20.5-51.5); MEAN CORPUSCULAR HEMOGLOBIN 34.5 uug (23.8-33.4); MEAN CORPUSCULAR HGB CONC 33 g/dL (32.5-36.3); MEAN CORPUSCULAR VOLUME 104.6 fL (73.0-96.2); MONOCYTES # (AUTO) 0.7 K/uL (2.0-10.0); MONOCYTES % (AUTO) 13.1 % (0.0-11.0); NEUTROPHILS # (AUTO) 2.9 K/uL (1.8-8.9); NEUTROPHILS % (AUTO) 57.9 % (38.5-71.5); PLATELET COUNT (AUTO) 102 K/uL (152-348); RED BLOOD CELL COUNT(AUTO) 2.61 MIL/uL (4.06-5.63)
[2019-03-22 05:08] LABS: CARBON DIOXIDE 26 mmol/L (21-32); CHLORIDE 112 mmol/L (98-107); CREATININE 0.6 mg/dL (0.6-1.3); GLUCOSE 87 mg/dL (74-106); MAGNESIUM 1.8 mg/dL (1.8-2.4); POTASSIUM 3.7 mmol/L (3.5-5.1); UREA NITROGEN, BLOOD 8 mg/dL (7-18)
[2019-03-22] MEDS: MEROPENEM 1 G in IV NORMAL SALINE 100 ML IV SCH (05:48)
[2019-03-22 06:38] LABS: BAND % (MANUAL) 4 % (0-10); NEUTROPHILS % (MANUAL) 61 % (42-75)
[2019-03-22 06:39] LABS: BASOPHILS % (MANUAL) 0 % (0-2); EOSINOPHILS % (MANUAL) 1 % (0-8); LYMPHOCYTES % (MANUAL) 21 % (20-40); MONOCYTES % (MANUAL) 13 % (2-10)
--- NOTE | 2019-03-22 06:50 | NUR ---
Slept well during the night. O2 remains @ 6 L NC; sat 98-100%. NAD noted. Bilateral mitsofiyas dc'd. Patient monitored closely. Addendum: 03/22/19 at 0651 by LATHA MORRIS RN Amended: Links added. Addendum: 03/22/19 at 0706 by LATHA MORRIS RN Amended: Links added.
--- NOTE | 2019-03-22 07:20 | NUR ---
Received report from mushroom cutter nurse, patient in bed asleep, no distress noted at this time. oxygen saturation 100% on 6L Nasal Canula. IVF NS running @50cc/hr. Head of bed elevated and heels floated.
[2019-03-22] MEDS: CULTURELLE CAPSULE PO SCH ×2 (08:40→20:07)
[2019-03-22] MEDS: FAMOTIDINE 20 MG TABLET PO SCH ×2 (08:40→20:07)
[2019-03-22] MEDS: SERTRALINE HCL 50 MG TABLET PO SCH (08:40)
[2019-03-22] MEDS: DOCUSATE SODIUM 100 MG CAPSULE PO SCH (08:40)
[2019-03-22] MEDS: QUETIAPINE FUMARATE 25 MG TABLET PO SCH ×2 (08:41→17:39)
[2019-03-22] MEDS: Z GUARD REMEDY PASTE 57 GM TUBE TOP SCH ×2 (08:43→20:09)
[2019-03-22] MEDS: TOBRAMYCIN/DEXAMETH OPHT DROP 2.5 ML BOTTLE EACHEYE SCH ×2 (08:43→17:41)
--- NOTE | 2019-03-22 09:00 | NUR ---
Patient was seen by Dr. Stewart and incapacitated consent form for procedure signed after attempting to contact OA without success.
[2019-03-22] MEDS ORDERED: FENTANYL CITRATE 100 MCG/2 ML AMPUL IV PRN (10:15)
[2019-03-22] MEDS ORDERED: MIDAZOLAM HCL 2 MG/2 ML VIAL IV PRN (10:15)
[2019-03-22] MEDS ORDERED: NALOXONE HCL 0.4 MG/ML AMPUL IV PRN (10:15)
--- NOTE | 2019-03-22 12:00 | NUR ---
Patient was taken down to CT for procedure, Recover nurse, Primary RN and this policy writer were present. Patient was transferred to CT table and secured for safety.
--- NOTE | 2019-03-22 12:43 | NUR ---
@1243 Patient was given a dose of versed 0.5mg IVP @1249 Patient was given a dose of versed 0.5mg IVP @1256 Patient was given a dose of fentanyl 25mcg IVP Patient remained awake and responsive. Vital signs stable and oxygen saturation 100% on rebreather mask 10L.
--- NOTE | 2019-03-22 13:44 | NUR ---
Patient was returned to CCU bed 1, insertion site clean and intact. Tubing was secured to patient per Dr. Kurtz request and draining serosanguinous fluid. No signs of leakage or crepitous. Vital signs stable and no distress noted at this time.
--- NOTE | 2019-03-22 13:44 | NUR ---
Patient back from CT guided Left chest pigtail insertion/ to water seal chest tube. At this time a call to attending physician Dr. Davis for further orders. Orders to maintain chest tube to water seal with chest X-ray in 4 hours. Will continue with care plan.
[2019-03-22] MEDS: IV NS 1000 ML 1,000 ML IV PRN (13:53)
[2019-03-22] MEDS: CEFEPIME HCL 1 G in IV DEXTROSE 5% 50 ML IV SCH ×2 (14:25→21:46)
--- NOTE | 2019-03-22 15:48 | NUR ---
Flagyl not available until now. Late administration due to medication not being available at 2pm.
[2019-03-22] MEDS: METRONIDAZOLE 500 MG/NS 100ML 500 MG in PREMIXED 1 EACH IV SCH ×2 (15:49→21:00)
--- NOTE | 2019-03-22 18:58 | NUR ---
Patient has been cooperative with care. Alert and responsive. Patients oxygen saturation is 100% on 6L nasal canula. Patient is hemodynamically stable and pacing at 80bmp. Patient had two bowel movements today, and is tolerating evening meal. Patient underwent CT guided thoracentesis with pigtail placement draining to chest tube with a total output of 560cc since insertion. IVF running at 50cc/hr, georges draining clear yellow urine. Patient has been frequently repositioned and heels offloaded.
--- NOTE | 2019-03-22 19:40 | NUR ---
Received pt awake, AxO x2 to name and place. Pt able to follow simple commands, and answers to yes or no questions. Cough and gag reflex present. Pt O2 sats up to 100% via NC 6L. S/P chest tube on left lung by gravity with red drainage noted. Pt shows no s/s of acute distress. Maintenance NS IVF running at 50cc/hr. F/C in place with clear yellow urine. Bilateral mittens for safety. Assessment completed. Pt denies pain or discomfort at this time. VSS, afebrile. Pt turned and repositioned, heels offloaded. Safety precautions maintained. Will continue to monitor closely.
[2019-03-22] MEDS: risperiDONE 1 MG TABLET PO SCH (20:07)
[2019-03-22] MEDS: TAMSULOSIN HCL 0.4 MG CAP.SR.24H PO SCH (20:07)
--- NOTE | 2019-03-22 20:30 | NUR ---
Paged and notified attending physician, DR SANTILLAN, about pt's follow up CXR after chest tube insertion. No new orders received. Will continue with plan of care.
[2019-03-23] VITALS (22 sets, daily range): BP systolic 91–123; BP diastolic 48–85
[2019-03-23] MEDS: ACETAMINOPHEN 325 MG TABLET PO PRN ×2 (01:18→22:42)
[2019-03-23 04:52] LABS: BASOPHILS % (AUTO) 0.8 % (0.0-2.0); EOSINOPHILS # (AUTO) 0.3 K/uL (0.0-0.7); EOSINOPHILS % (AUTO) 5.4 % (0.0-7.0); HEMATOCRIT 26.8 % (36.7-47.1); HEMOGLOBIN 8.8 g/dL (12.5-16.3); LYMPHOCYTES # (AUTO) 0.7 K/uL (20.0-40.0); LYMPHOCYTES % (AUTO) 12.6 % (20.5-51.5); MEAN CORPUSCULAR HEMOGLOBIN 34.1 uug (23.8-33.4); MEAN CORPUSCULAR HGB CONC 33 g/dL (32.5-36.3); MEAN CORPUSCULAR VOLUME 104.1 fL (73.0-96.2); MONOCYTES # (AUTO) 0.6 K/uL (2.0-10.0); MONOCYTES % (AUTO) 11.6 % (0.0-11.0); NEUTROPHILS # (AUTO) 3.9 K/uL (1.8-8.9); NEUTROPHILS % (AUTO) 69.6 % (38.5-71.5); PLATELET COUNT (AUTO) 130 K/uL (152-348); RED BLOOD CELL COUNT(AUTO) 2.57 MIL/uL (4.06-5.63); WHITE BLOOD COUNT (AUTO) 5.6 K/uL (3.6-10.2)
[2019-03-23 05:11] LABS: CARBON DIOXIDE 28 mmol/L (21-32); CHLORIDE 111 mmol/L (98-107); CREATININE 0.6 mg/dL (0.6-1.3); GLUCOSE 92 mg/dL (74-106); MAGNESIUM 1.6 mg/dL (1.8-2.4); PHOSPHOROUS 2.8 mg/dL (2.5-4.9); POTASSIUM 3.8 mmol/L (3.5-5.1); UREA NITROGEN, BLOOD 9 mg/dL (7-18)
--- NOTE | 2019-03-23 05:25 | NUR ---
Am care provided at this time. Pt awake, AxO x2, able to follow simple commands. Pt assisted with turning and repositioning. Heels offloaded. VSS, afebrile. Will continue plan of care.
[2019-03-23] MEDS: METRONIDAZOLE 500 MG/NS 100ML 500 MG in PREMIXED 1 EACH IV SCH ×3 (05:28→21:02)
[2019-03-23 05:49] LABS: BAND % (MANUAL) 10 % (0-10); LYMPHOCYTES % (MANUAL) 5 % (20-40); MONOCYTES % (MANUAL) 2 % (2-10); NEUTROPHILS % (MANUAL) 79 % (42-75)
[2019-03-23 05:50] LABS: EOSINOPHILS % (MANUAL) 4 % (0-8)
[2019-03-23] MEDS: CEFEPIME HCL 1 G in IV DEXTROSE 5% 50 ML IV SCH ×3 (06:01→21:33)
--- NOTE | 2019-03-23 06:25 | NUR ---
Pt slept in between care. O2 remains at 6L NC, sat 100%. Left chest pigtail to water seal drainage system with no signs of leakage or crepitus - total output of 60 cc throughout the night. Pt denies pain or discomfort at this time. Continuous maintenance IVF running. No acute distress noted. Bilateral mittens for safety. Aspiration and safety precautions observed. Will endorse to day shift nurse.
[2019-03-23] MEDS: IV NS 1000 ML 1,000 ML IV PRN (07:10)
[2019-03-23] MEDS: MAGNESIUM SULFATE/D5W 100 ML IV SCH ×2 (07:43→08:29)
[2019-03-23] MEDS: CULTURELLE CAPSULE PO SCH ×2 (08:01→20:19)
[2019-03-23] MEDS: FAMOTIDINE 20 MG TABLET PO SCH ×2 (08:01→20:20)
[2019-03-23] MEDS: QUETIAPINE FUMARATE 25 MG TABLET PO SCH ×2 (08:01→17:09)
[2019-03-23] MEDS: TOBRAMYCIN/DEXAMETH OPHT DROP 2.5 ML BOTTLE EACHEYE SCH ×2 (08:01→17:09)
[2019-03-23] MEDS: SERTRALINE HCL 50 MG TABLET PO SCH (08:01)
[2019-03-23] MEDS: Z GUARD REMEDY PASTE 57 GM TUBE TOP SCH ×2 (08:08→20:27)
[2019-03-23] MEDS: DOCUSATE SODIUM 100 MG CAPSULE PO SCH (08:08)
--- NOTE | 2019-03-23 13:24 | NUR ---
Nursing Note: Pt came from [facility] with no name. Unable to obtain most recent hospitalizations or medical records at this time. Addendum: 03/23/19 at 1324 by CHRIS LERNER RN Amended: Links added.
--- NOTE | 2019-03-23 19:40 | NUR ---
Received pt HOB elevated, bilateral mittens for safety. Pt awake, AxO x2 to name and place. Pt able to follow simple commands, and answers to yes or no questions. Cough and gag reflex present. Upper extremities mild weakness, lower extremities severe weakness. Pt on tele monitor AV-pacing with HR 80. Pt O2 sats up to 100% via NC 6L. S/P chest tube (03/22/19) on low continuous suction, reddish drainage noted. No acute signs of distress. Pt c/o of foot pain 11/22 at this time. Pain management noted. Assessment completed. VSS, afebrile. Pt turned and repositioned, heels floating. Aspiration precautions and safety measures maintained. Will continue to monitor closely. Addendum: 03/23/19 at 2201 by GIRMA GRANT RN Amended: Links added.
[2019-03-23] MEDS: TAMSULOSIN HCL 0.4 MG CAP.SR.24H PO SCH (20:18)
[2019-03-23] MEDS: risperiDONE 1 MG TABLET PO SCH (20:20)
[2019-03-24] VITALS (10 sets, daily range): BP systolic 90–114; BP diastolic 59–73
[2019-03-24 05:16] LABS: BASOPHILS % (AUTO) 0.9 % (0.0-2.0); CREATININE 0.7 mg/dL (0.6-1.3); EOSINOPHILS # (AUTO) 0.4 K/uL (0.0-0.7); EOSINOPHILS % (AUTO) 8.4 % (0.0-7.0); HEMATOCRIT 26.6 % (36.7-47.1); HEMOGLOBIN 8.9 g/dL (12.5-16.3); LYMPHOCYTES # (AUTO) 0.7 K/uL (20.0-40.0); LYMPHOCYTES % (AUTO) 14.8 % (20.5-51.5); MAGNESIUM 1.9 mg/dL (1.8-2.4); MEAN CORPUSCULAR HEMOGLOBIN 34.8 uug (23.8-33.4); MEAN CORPUSCULAR HGB CONC 34 g/dL (32.5-36.3); MEAN CORPUSCULAR VOLUME 103.8 fL (73.0-96.2); MONOCYTES # (AUTO) 0.6 K/uL (2.0-10.0); MONOCYTES % (AUTO) 13.8 % (0.0-11.0); NEUTROPHILS # (AUTO) 2.8 K/uL (1.8-8.9); NEUTROPHILS % (AUTO) 62.1 % (38.5-71.5); PHOSPHOROUS 2.7 mg/dL (2.5-4.9); PLATELET COUNT (AUTO) 121 K/uL (152-348); POTASSIUM 4.1 mmol/L (3.5-5.1); RED BLOOD CELL COUNT(AUTO) 2.56 MIL/uL (4.06-5.63); WHITE BLOOD COUNT (AUTO) 4.6 K/uL (3.6-10.2)
[2019-03-24] MEDS: METRONIDAZOLE 500 MG/NS 100ML 500 MG in PREMIXED 1 EACH IV SCH ×2 (05:17→14:14)
--- NOTE | 2019-03-24 05:45 | NUR ---
Pt tolerated AM care at this time. VSS, afebrile. Pt remains on 6L with O2 sat 100%. Pt denies pain or discomfort. Chest tube drainage output 170 cc with no signs of leakage or crepitus. Maintenance NS IVF running at 50 cc/hr. All needs attended. Aspiration precautions and safety measures observed. Pt turned and repositioned, heels offloaded. Will continue to monitor.
[2019-03-24] MEDS: CEFEPIME HCL 1 G in IV DEXTROSE 5% 50 ML IV SCH ×3 (06:03→21:03)
[2019-03-24] MEDS: IV NS 1000 ML 1,000 ML IV PRN (07:04)
[2019-03-24] MEDS: Z GUARD REMEDY PASTE 57 GM TUBE TOP SCH ×2 (07:49→21:02)
[2019-03-24] MEDS: SERTRALINE HCL 50 MG TABLET PO SCH (07:49)
[2019-03-24] MEDS: FAMOTIDINE 20 MG TABLET PO SCH ×2 (07:49→21:02)
[2019-03-24] MEDS: DOCUSATE SODIUM 100 MG CAPSULE PO SCH (07:49)
[2019-03-24] MEDS: QUETIAPINE FUMARATE 25 MG TABLET PO SCH ×2 (07:49→16:06)
[2019-03-24] MEDS: CULTURELLE CAPSULE PO SCH ×2 (07:49→21:02)
[2019-03-24] MEDS: TOBRAMYCIN/DEXAMETH OPHT DROP 2.5 ML BOTTLE EACHEYE SCH (07:50)
[2019-03-24 11:06] LABS: CRYPTOCOCCUS AB, SERUM Negative (Negative)
--- NOTE | 2019-03-24 11:11 | NUR ---
Dr. Campbell here to see pt. Full report given. New orders received.
--- NOTE | 2019-03-24 13:30 | NUR ---
CHARLIE Moss here to see pt. Full report given. New orders received. stated that it was okay to downgrade pt to telemetry status.
--- NOTE | 2019-03-24 16:34 | NUR ---
Full telephone SBAR report given to JACQUELINE Siddiqui 3rd floor.
--- NOTE | 2019-03-24 16:43 | NUR ---
Received SBAR report from JACQUELINE Root
--- NOTE | 2019-03-24 16:45 | NUR ---
Pt transferred to room #312-T with RN. Pt stable and nad noted upon leaving the unit.
--- NOTE | 2019-03-24 17:10 | NUR ---
Received 63 year old male transfer from CCU to telemetry. Dual AV pace on monitor with HR in the 90's. AAOx2, able to follow simple commands. In no acute distress. Denies pain or any discomfort at this time. MAXI midline intact and patent. Araujo in place, dwelling well with clear yellow urine output. Chest tube on left lung with red drainage noted. On 6L NC with humidifier. Redness on sacral area noted, protected with mepilex. On air mattress. Has bilateral mittens for safety. All needs attended, comfort provided. Will continue to monitor for remainder of shift.
--- NOTE | 2019-03-24 18:18 | NUR ---
Patient resting comfortably in bed. No change in status. Will endorse plan of care to second shift supervisor nurse accordingly.
--- NOTE | 2019-03-24 19:35 | NUR ---
Received pt HOB elevated, bilateral mittens for safety. Pt awake, AxO x2 to name and place. Pt able to follow simple commands, and answers to yes or no questions. Cough and gag reflex present. Pt on tele monitor AV-pacing with HR 80. Pt O2 sats up to 100% via NC 6L. S/P chest tube (03/22/19) on low intermittent suction with no signs of leakage. No acute signs of distress. Pt denies pain or discomfort at this time. Assessment completed. VSS, afebrile. Pt turned and repositioned, heels floating. Aspiration precautions and safety measures maintained. Will continue to monitor closely.
[2019-03-24] MEDS: risperiDONE 1 MG TABLET PO SCH (21:02)
[2019-03-24] MEDS: TAMSULOSIN HCL 0.4 MG CAP.SR.24H PO SCH (21:02)
[2019-03-24] MEDS: METRONIDAZOLE 500 MG TABLET PO SCH (21:30)
--- NOTE | 2019-03-24 22:40 | NUR ---
Pt incontinent of soft brown BM, pm care provided. Pt kept clean and dry, pt assisted with turning and reposition. Pt tolerated care well, pt denies SOB or pain. HOB elevated maintained. Will continue to monitor.
[2019-03-24] MEDS: ACETAMINOPHEN 325 MG TABLET PO PRN (22:49)
[2019-03-25 00:36] VITALS: BP 105/64
[2019-03-25] MEDS: IV NS 1000 ML 1,000 ML IV PRN ×2 (02:38→20:46)
[2019-03-25 04:39] VITALS: BP 110/69
[2019-03-25] MEDS: METRONIDAZOLE 500 MG TABLET PO SCH ×3 (05:03→22:06)
[2019-03-25] MEDS: CEFEPIME HCL 1 G in IV DEXTROSE 5% 50 ML IV SCH ×3 (05:03→22:06)
[2019-03-25 05:55] LABS: EOSINOPHILS # (AUTO) 0.3 K/uL (0.0-0.7); EOSINOPHILS % (AUTO) 6.7 % (0.0-7.0); HEMATOCRIT 26.8 % (36.7-47.1); HEMOGLOBIN 8.9 g/dL (12.5-16.3); LYMPHOCYTES # (AUTO) 0.6 K/uL (20.0-40.0); LYMPHOCYTES % (AUTO) 15.1 % (20.5-51.5); MEAN CORPUSCULAR HEMOGLOBIN 34.5 uug (23.8-33.4); MEAN CORPUSCULAR HGB CONC 33 g/dL (32.5-36.3); MEAN CORPUSCULAR VOLUME 103.4 fL (73.0-96.2); MONOCYTES # (AUTO) 0.5 K/uL (2.0-10.0); MONOCYTES % (AUTO) 12.7 % (0.0-11.0); NEUTROPHILS # (AUTO) 2.5 K/uL (1.8-8.9); NEUTROPHILS % (AUTO) 64.5 % (38.5-71.5); PLATELET COUNT (AUTO) 126 K/uL (152-348); RED BLOOD CELL COUNT(AUTO) 2.59 MIL/uL (4.06-5.63); WHITE BLOOD COUNT (AUTO) 3.8 K/uL (3.6-10.2)
[2019-03-25 06:07] LABS: CARBON DIOXIDE 30 mmol/L (21-32); CHLORIDE 108 mmol/L (98-107); CREATININE 0.5 mg/dL (0.6-1.3); GLUCOSE 107 mg/dL (74-106); MAGNESIUM 1.7 mg/dL (1.8-2.4); PHOSPHOROUS 2.7 mg/dL (2.5-4.9); POTASSIUM 3.3 mmol/L (3.5-5.1); UREA NITROGEN, BLOOD 7 mg/dL (7-18)
[2019-03-25 08:00] VITALS: BP 103/68
[2019-03-25] MEDS: QUETIAPINE FUMARATE 25 MG TABLET PO SCH ×2 (09:04→17:25)
[2019-03-25] MEDS: CULTURELLE CAPSULE PO SCH ×2 (09:04→21:18)
[2019-03-25] MEDS: SERTRALINE HCL 50 MG TABLET PO SCH (09:04)
[2019-03-25] MEDS: FAMOTIDINE 20 MG TABLET PO SCH ×2 (09:04→21:18)
[2019-03-25] MEDS: DOCUSATE SODIUM 100 MG CAPSULE PO SCH (09:04)
[2019-03-25] MEDS ORDERED: POTASSIUM CHLORIDE 20 MEQ POWDER PACKET PO ONE (09:15)
[2019-03-25] MEDS: MAGNESIUM SULFATE/D5W 100 ML IV SCH ×2 (10:08→11:18)
[2019-03-25] MEDS: Z GUARD REMEDY PASTE 57 GM TUBE TOP SCH ×2 (11:40→21:18)
[2019-03-25 12:00] VITALS: BP 102/72
[2019-03-25] MEDS: ACETAMINOPHEN 325 MG TABLET PO PRN ×2 (15:19→21:21)
[2019-03-25 16:10] VITALS: BP 109/65
--- NOTE | 2019-03-25 19:44 | NUR ---
PATIENT ALERT AND ORIENTED X NO S/S OF ACUTE DISTRESS NOTED , WILL CONTINUE TO MONITOR, MIDLINE ON THE RIGHT UPPER ARM. SAFETY AND COMFORT PROVIDE AT ALL TIMES
[2019-03-25 20:00] VITALS: BP 106/57
[2019-03-25] MEDS: TAMSULOSIN HCL 0.4 MG CAP.SR.24H PO SCH (21:18)
[2019-03-25] MEDS: risperiDONE 1 MG TABLET PO SCH (21:18)
[2019-03-25] MEDS: LORAZEPAM 1 MG TABLET PO PRN (21:21)
[2019-03-26] VITALS: BP 97/58
[2019-03-26 04:00] VITALS: BP 110/56
[2019-03-26] MEDS: CEFEPIME HCL 1 G in IV DEXTROSE 5% 50 ML IV SCH ×2 (05:29→13:15)
[2019-03-26] MEDS: METRONIDAZOLE 500 MG TABLET PO SCH ×2 (05:29→13:15)
[2019-03-26 06:31] LABS: EOSINOPHILS # (AUTO) 0.3 K/uL (0.0-0.7); EOSINOPHILS % (AUTO) 5.6 % (0.0-7.0); HEMATOCRIT 26.8 % (36.7-47.1); HEMOGLOBIN 8.8 g/dL (12.5-16.3); LYMPHOCYTES # (AUTO) 0.6 K/uL (20.0-40.0); LYMPHOCYTES % (AUTO) 12.6 % (20.5-51.5); MEAN CORPUSCULAR HEMOGLOBIN 34.7 uug (23.8-33.4); MEAN CORPUSCULAR HGB CONC 33 g/dL (32.5-36.3); MEAN CORPUSCULAR VOLUME 105.9 fL (73.0-96.2); MONOCYTES # (AUTO) 0.6 K/uL (2.0-10.0); NEUTROPHILS # (AUTO) 3.2 K/uL (1.8-8.9); NEUTROPHILS % (AUTO) 67.8 % (38.5-71.5); PLATELET COUNT (AUTO) 123 K/uL (152-348); RED BLOOD CELL COUNT(AUTO) 2.53 MIL/uL (4.06-5.63); WHITE BLOOD COUNT (AUTO) 4.7 K/uL (3.6-10.2)
[2019-03-26 06:44] LABS: CARBON DIOXIDE 31 mmol/L (21-32); CHLORIDE 110 mmol/L (98-107); CREATININE 0.5 mg/dL (0.6-1.3); GLUCOSE 105 mg/dL (74-106); MAGNESIUM 2.1 mg/dL (1.8-2.4); PHOSPHOROUS 2.8 mg/dL (2.5-4.9); POTASSIUM 3.7 mmol/L (3.5-5.1); UREA NITROGEN, BLOOD 9 mg/dL (7-18)
--- NOTE | 2019-03-26 07:20 | NUR ---
RECEIVED PATIENT IN BED RESTING WITH NO S/S OF ACUTE DISTRESS NOTED AT THIS TIME, MIDLINE INTACT AND PATENT. PATIENT CONNECTED TO CHEST TUBE. SAFETY AND COMFORT PROVIDED AT ALL TIMES, KEPT CLEAN AND DRY AT ALL TIMES. WILL CONTINUE TO MONITOR. CALL LIGHT WITHIN REACHED.
--- NOTE | 2019-03-26 07:29 | NUR ---
patient slept intermittently and confused. no signs of acute distress. v/s stable. safety and comfort measures provided. Ativan administered for anxiety and agitation. pt. tolerated well. will endorse care to morning nurse.
[2019-03-26] MEDS: QUETIAPINE FUMARATE 25 MG TABLET PO SCH ×2 (09:54→16:45)
[2019-03-26] MEDS: DOCUSATE SODIUM 100 MG CAPSULE PO SCH (09:54)
[2019-03-26] MEDS: FAMOTIDINE 20 MG TABLET PO SCH (09:55)
[2019-03-26] MEDS: CULTURELLE CAPSULE PO SCH (09:55)
[2019-03-26] MEDS: SERTRALINE HCL 50 MG TABLET PO SCH (09:55)
[2019-03-26] MEDS: Z GUARD REMEDY PASTE 57 GM TUBE TOP SCH (10:02)
[2019-03-26] MEDS ORDERED: TAMS-3 PO (10:54)
[2019-03-26] MEDS ORDERED: METR-147 PO (10:54)
[2019-03-26 11:35] VITALS: BP 112/66
[2019-03-26 15:57] VITALS: BP 133/87
--- NOTE | 2019-03-26 19:00 | NUR ---
PATIENT DISCHARGE TO [facility]IA [facility]BULANCE WITH 3 EMT, DISCHARGE INSTRUCTION GIVEN TO PATIENT AND VERBALIZED UNDERTSANDING, NO C/O PAIN AT THIS TIME , NO S/S PF ACUTE DISTRESS NOTED, REMOVE MIDLINE WITH NO BLEEDING NOTED, RETAINED ZHU CATHETER, CHEST TUBE ALSO REMAINED MD ORDER. BELONGINGS ACCOUNTED FOR AND SIGNED, QUESTIONS AND CONCERNS ADDRESSED.
== END 2019-03-26 19:00 | DRG 871 ==
LOC: ER 16:55 → TELE3 18:57 → CCU 03-17 02:42 → TELE3 03-24 16:45
PROVIDERS: ADMIT Registered Nurse; ATTEND Internal Medicine
PROC: 05HB33Z Insertion of Infusion Device into Right Basilic Vein, Percutaneous Approach (ICD-10-PCS; principal; 2019-03-17)
PROC: 0W9B3ZX Drainage of Left Pleural Cavity, Percutaneous Approach, Diagnostic (ICD-10-PCS; 2019-03-19)
PROC: 0W9B30Z Drainage of Left Pleural Cavity with Drainage Device, Percutaneous Approach (ICD-10-PCS; 2019-03-22)
DX: A41.9 Sepsis, unspecified organism (principal); J69.0 Pneumonitis due to inhalation of food and vomit; G92 Toxic encephalopathy; R65.21 Severe sepsis with septic shock; I50.43 Acute on chronic combined systolic (congestive) and diastolic (congestive) heart failure; E43 Unspecified severe protein-calorie malnutrition; J91.8 Pleural effusion in other conditions classified elsewhere; J98.19 Other pulmonary collapse; J94.8 Other specified pleural conditions; E87.0 Hyperosmolality and hypernatremia; J98.11 Atelectasis; D68.59 Other primary thrombophilia; D61.818 Other pancytopenia; I11.0 Hypertensive heart disease with heart failure; E83.42 Hypomagnesemia; E87.6 Hypokalemia; G20 Parkinson's disease; Z86.74 Personal history of sudden cardiac arrest; Z74.01 Bed confinement status; Z95.810 Presence of automatic (implantable) cardiac defibrillator; M41.9 Scoliosis, unspecified; H01.003 Unspecified blepharitis right eye, unspecified eyelid; Z68.23 Body mass index [BMI] 23.0-23.9, adult; N40.0 Benign prostatic hyperplasia without lower urinary tract symptoms; F32.9 Major depressive disorder, single episode, unspecified; F41.9 Anxiety disorder, unspecified; F02.80 Dementia in other diseases classified elsewhere, unspecified severity, without behavioral disturbance, psychotic disturbance, mood disturbance, and anxiety; G93.89 Other specified disorders of brain; I08.3 Combined rheumatic disorders of mitral, aortic and tricuspid valves; E83.39 Other disorders of phosphorus metabolism; E53.8 Deficiency of other specified B group vitamins
CPT/HCPCS: 32555; 36415; 70030-TC; 70450; 71045; 71250; 82533; 82784; 83550; 83605; 83615; 83735; 83986; 84100; 84155; 84157; 84165; 84443; 85025; 85610; 85730; 86334; 87040; 87070; 87086; 87205; 87328; 87400; 87806; 93005; 93307; A4217; A4663; C1758; G0378; J0692; J2185; J2250; J2543; J3010; J3370; J3430; J3475; J3480; J3490; J7030; J7040; J7060